=== PATIENT | male | born 1990 | race Caucasian/White ===

== ENCOUNTER → 2024-04-06 09:00 | Outpatient (REF) | payer OTHER, SELFPAY | LOC: DHSLP 09:00 | PROVIDERS: ATTENDING PHYSICIAN Internal Medicine | DX: G47.61 Periodic limb movement disorder (principal); R06.83 Snoring | CPT/HCPCS: 95810 ==

== ENCOUNTER → 2024-04-07 09:00 | Outpatient (REF) | payer OTHER, SELFPAY | LOC: DHSLP 09:00 | PROVIDERS: ATTENDING PHYSICIAN Internal Medicine | DX: G47.10 Hypersomnia, unspecified (principal) | CPT/HCPCS: 95805 ==

== ENCOUNTER → 2024-06-15 06:44 | Outpatient (REF) | payer OTHER, SELFPAY | LOC: PAVMRI 06:44 | PROVIDERS: ATTENDING PHYSICIAN Physical Medicine & Rehabilitation; FAMILY PHYSICIAN Family Medicine | DX: M23.91 Unspecified internal derangement of right knee (principal) | CPT/HCPCS: 73721 ==

== ENCOUNTER → 2025-04-05 11:18 | Outpatient (REF) | payer OTHER, SELFPAY | LOC: RAD 11:18 | PROVIDERS: ATTENDING PHYSICIAN Family Medicine; FAMILY PHYSICIAN Family Medicine | DX: R05.1 Acute cough (principal) | CPT/HCPCS: 71046 ==